=== PATIENT | female | born 1965 | race African-American/Black ===

== ENCOUNTER → 2018-04-29 | Outpatient (CLI) | payer OTHER ==
--- NOTE | 2018-05-16 12:39 | MM ---
Reason for exam: screening (asymptomatic). History: Patient is postmenopausal. Physical Findings: A clinical breast exam by your physician is recommended on an annual basis and results should be correlated with mammographic findings. MG Screening Mammo w CAD Bilateral CC and MLO view(s) were taken. No prior studies available for comparison. The breast tissue is heterogeneously dense. This may lower the sensitivity of mammography. No suspicious abnormality. ASSESSMENT: Negative, BI-RAD 1 RECOMMENDATION: Routine screening mammogram of both breasts in 1 year.
== END | disposition home or self-care (01) ==
LOC: RADMAMWWP 08:48 → EEVIPCON 08:48
DX: Z12.31 Encounter for screening mammogram for malignant neoplasm of breast (principal)
CPT/HCPCS: 77067

== ENCOUNTER 2023-02-09 10:32 | Inpatient (IN) | payer OTHER, MEDICARE ==
[2023-02-09] MEDS ORDERED: SODIUM CHLORIDE 0.9% 1,000 ML IV ONE (10:39)
[2023-02-09] MEDS ORDERED: ACETAMINOPHEN IV (For NPO) 1,000 MG in EMPTY BAG 1 BAG IVPB STA (10:44)
--- NOTE | 2023-02-09 11:05 | ED ---
Altered Mental Status HPI - General Chief Complaint: Altered Mental Status Stated Complaint: tachycardia Time Seen by Provider: 02/09/23 10:35 Source: EMS Mode of arrival: EMS Limitations: altered mental status - History of Present Illness Initial Comments: 57-year-old female with past medical history of schizoaffective disorder, Tinoco's palsy who presents to the emergency department from the [place]. Her caretakers at bedside and provides the history. States the patient was seen on Sunday at the [facility] in [place]. She was having some flank pain. They did perform laboratory studies and a CT of her abdomen and pelvis which did not demonstrate a kidney stone but did find pneumonia. They recommended that the patient be hospitalized however she refused. She was not sent home on any medications. Patient has gone progressively confused since yesterday. They state that they noted that she began having left-sided ear drainage. Today the patient was taken into the clinic where she was diagnosed with an ear infection. Due to elevated heart rate with concern for sepsis, they did transport the patient to the hospital. Patient cannot provide much history. Denies any chest pain or shortness of breath. No lateralizing weakness. No other alleviating, precipitating or modifying factors - Related Data Home Medications Medication Instructions Recorded Confirmed Acetaminophen Tab [Tylenol] 650 mg PO Q6HR PRN 02/09/23 02/09/23 Benzoyl Peroxide 2.5% Gel 1 applic TOPICAL DAILY PRN 02/09/23 02/09/23 Benztropine Mesylate [Cogentin] 1 mg PO DAILY 02/09/23 02/09/23 Carboxymethylcellulose Sodium 1 drop BOTH EYES QID PRN 02/09/23 02/09/23 [Refresh Tears] Cholecalciferol [Vitamin D3 (10 10 mcg PO DAILY 02/09/23 02/09/23 Mcg = 400 Iu)] Diclofenac Sodium Gel [Voltaren 1 applic TOPICAL BID PRN 02/09/23 02/09/23 Gel] Docusate [Colace] 100 mg PO BID PRN 02/09/23 02/09/23 Famotidine [Pepcid] 20 mg PO DAILY 02/09/23 02/09/23 Gabapentin [Neurontin] 100 mg PO BID 02/09/23 02/09/23 Hypromellose 0.5% Eye Drops 1 drop BOTH EYES DAILY PRN 02/09/23 02/09/23 LORazepam [Ativan] 1 mg PO BID PRN 02/09/23 02/09/23 Loratadine 10 mg PO DAILY 02/09/23 02/09/23 Multivitamins, Thera [Multivitamin 1 tab PO DAILY 02/09/23 02/09/23 (formulary)] OLANZapine 15 mg PO HS 02/09/23 02/09/23 Omeprazole 20 mg PO DAILY 02/09/23 02/09/23 Oxybutynin Chloride [oxyBUTYnin 10 mg PO DAILY 02/09/23 02/09/23 chloride ER] Paliperidone [Invega] 6 mg PO DAILY 02/09/23 02/09/23 Pyrithione Zinc 2% Shampoo 1 applic TOPICAL DAILY PRN 02/09/23 02/09/23 Refresh Pm Eye Lubrication 1 applic BOTH EYES HS 02/09/23 02/09/23 Tretinoin/Emollient Base 1 applic TOPICAL HS 02/09/23 02/09/23 [Tretinoin 0.05% Emollient Crm] Triamcinolone 0.1% Ointment 1 applic TOPICAL BID PRN 02/09/23 02/09/23 [Kenalog 0.1% Ointment] Valproic Acid [Depakene] 500 mg PO TID@0800,1400,2000 02/09/23 02/09/23 cycloSPORINE 0.05% OPHTH SOLN 1 applicator BOTH EYES Q12H 02/09/23 02/09/23 [Restasis] polyethylene glycoL 3350 [Miralax] 17 gm PO BID PRN 02/09/23 02/09/23 Previous Rx's Medication Instructions Recorded Levofloxacin [Levaquin] 750 mg PO DAILY 6 Days #6 tab 02/13/23 Ofloxacin 0.3% Ophth Soln [Ocuflox 10 drops LEFT EAR BID #21 ml 02/13/23 Ophth Soln] Allergies Allergy/AdvReac Type Severity Reaction Status Date / Time No Known Allergies Allergy Verified 02/09/23 13:18 Review of Systems ROS Statement: Those systems with pertinent positive or pertinent negative responses have been documented in the HPI. ROS Other: All systems not noted in ROS Statement are negative. Past Medical History Past Medical History: Unable to Obtain Past Surgical History: Unable to Obtain General Exam Limitations: altered mental status General appearance: lethargic Head exam: Present: atraumatic, normocephalic, normal inspection Eye exam: Present: normal appearance, PERRL, EOMI. Absent: scleral icterus, conjunctival injection, periorbital swelling ENT exam: Present: mucous membranes dry, other (purulent drainge left ear. cannot visualize tm) Respiratory exam: Present: rales Cardiovascular Exam: Present: normal rhythm, tachycardia GI/Abdominal exam: Present: soft, normal bowel sounds. Absent: distended, tenderness, guarding, rebound, rigid Neurological exam: Present: altered Psychiatric exam: Present: flat affect Skin exam: Present: warm, dry, intact, normal color. Absent: rash Course Vital Signs 02/09/23 02/09/23 02/09/23 10:34 12:12 13:13 Temperature 99.1 F Pulse Rate 118 H 112 H 105 H Respiratory 20 20 20 Rate Blood Pressure 129/84 104/62 122/72 O2 Sat by Pulse 94 L 96 96 Oximetry 02/09/23 02/09/23 02/09/23 14:31 15:00 16:00 Temperature Pulse Rate 112 H 106 H 121 H Respiratory 20 20 20 Rate Blood Pressure 109/68 104/62 114/88 O2 Sat by Pulse 96 98 96 Oximetry 02/09/23 02/09/23 02/09/23 17:00 18:55 19:20 Temperature 101.7 F H 100 F H Pulse Rate 106 H Respiratory 20 22 Rate Blood Pressure 117/87 114/67 O2 Sat by Pulse 96 98 Oximetry 02/09/23 02/09/23 02/10/23 20:28 22:05 01:19 Temperature 101.1 F H 99.5 F Pulse Rate 118 H 120 H 110 H Respiratory 20 20 20 Rate Blood Pressure 103/64 100/74 103/66 O2 Sat by Pulse 95 96 96 Oximetry 02/10/23 02/10/23 02/10/23 02:40 04:29 05:27 Temperature 100.5 F H Pulse Rate 112 H 121 H 130 H Respiratory 19 18 21 Rate Blood Pressure 102/52 120/55 115/56 O2 Sat by Pulse 98 97 97 Oximetry 02/10/23 02/10/23 02/10/23 06:12 07:24 08:15 Temperature 97.5 F L Pulse Rate 124 H 114 H Respiratory 16 Rate Blood Pressure 96/61 O2 Sat by Pulse Oximetry 02/10/23 02/10/23 02/10/23 11:40 15:04 15:49 Temperature 99.1 F 100.4 F H 100 F H Pulse Rate 117 H 131 H 110 H Respiratory 18 18 18 Rate Blood Pressure 120/87 107/68 107/68 O2 Sat by Pulse 98 94 L 97 Oximetry 02/10/23 16:50 Temperature 100 F H Pulse Rate 112 H Respiratory 18 Rate Blood Pressure 115/71 O2 Sat by Pulse 96 Oximetry Medical Decision Making - Medical Decision Making Was pt. sent in by a medical professional or institution (, PA, PHYSICS DEPARTMENT CHAIR, urgent care, hospital, or senior care...) When possible be specific @ -No Did you speak to anyone other than the patient for history (EMS, parent, family, police, friend...)? What history was obtained from this source @ -it infrastructure architect from [facility], ems both provide history Did you review nursing and triage notes (agree or disagree)? Why? @ -I reviewed and agree with nursing and triage notes Were old charts reviewed (outside hosp., previous admission, EMS record, old EKG, old radiological studies, urgent care reports/EKG's, senior care records)? Report findings @ -No old charts were reviewed Differential Diagnosis (chest pain, altered mental status, abdominal pain women, abdominal pain men, vaginal bleeding, weakness, fever, dyspnea, syncope, headache, dizziness, GI bleed, back pain, seizure, CVA, palpatations, mental health, musculoskeletal)? @ -pna, uti, sepsis, sah, sdh, cva, cellulitis EKG interpreted by me (3pts min.). @ -Yes and demonstrates sinus tachycardia with a rate of 120. [place] interval 124. QRS 77. QTC 410. Inverted T-wave lead 3, V3-V4. Mild associated ST depression. No acute ST segment elevation X-rays interpreted by me (1pt min.). @ -yes, demonstrates pna CT interpreted by me (1pt min.). @ -yes, no pe U/S interpreted by me (1pt. min.). @ -None done What testing was considered but not performed or refused? (CT, X-rays, U/S, labs)? Why? @ -None What meds were considered but not given or refused? Why? @ -None Did you discuss the management of the patient with other professionals (professionals i.e. , PA, PHYSICS DEPARTMENT CHAIR, lab, RT, psych nurse, psychologist social, electroplating worker, teacher, small business banking officer, human services case manager)? Give summary @ -yes, dr reyes Was smoking cessation discussed for >3mins.? @ -No Was critical care preformed (if so, how long)? @ -No Were there social determinants of health that impacted care today? How? (Homelessness, low income, unemployed, alcoholism, drug addiction, transportation, low edu. Level, literacy, decrease access to med. care, snf, rehab)? @ -schizoaffective disorder - history difficult to obtain from pt directly Was there de-escalation of care discussed even if they declined (Discuss DNR or withdrawal of care, Hospice)? DNR status @ -No What co-morbidities impacted this encounter? (DM, HTN, Smoking, COPD, CAD, Cancer, CVA, ARF, Chemo, Hep., AIDS, mental health diagnosis, sleep apnea, morbid obesity)? @ -None Was patient admitted / discharged? Hospital course, mention meds given and route, prescriptions, significant lab abnormalities, going to OR and other pe rtinent info. @ -Upon arrival patient was placed into room 5. A thorough history and physical exam was performed. Patient does have profound left-sided otitis externa. Wick is placed in a ofloxacin drops or ordered. Laboratory studies are conducted and reviewed. White blood cell count 14.3. Potassium 3.2. This is replaced. UA demonstrates rare bacteria. Urine is positive for benzos for which the patient does take Ativan twice daily as needed. Chest x-ray is followed by chest CT which demonstrates no PE but continued pneumonia. Antibiotics are administered. Recommended admission for pneumonia with sepsis as well as otitis externa. Elephant Keeper was agreeable. Patient admitted to the floor to Dr. Reyes. Undiagnosed new problem with uncertain prognosis? @ -yes Drug Therapy requiring intensive monitoring for toxicity (Heparin, Nitro, Insulin, Cardizem)? @ -No Were any procedures done? @ -No Diagnosis/symptom? @ -acute encephalopathy, acute pna, acute left otitis externa, sepsis, leukocytosis, tachycardia, hypokalemia Acute, or Chronic, or Acute on Chronic? @ -ACUTE Uncomplicated (without systemic symptoms) or Complicated (systemic symptoms)? @ -complicated Side effects of treatment? @ -No Exacerbation, Progression, or Severe Exacerbation? @ -No Poses a threat to life or bodily function? How? (Chest pain, [place], [place], pneumonia, PE, COPD, DKA, ARF, appy, cholecystitis, CVA, Diverticulitis, Homicidal, Suicidal, threat to staff... and all critical care pts) @ -yes, patient meets sepsis criteria from pna - Lab Data Result diagrams: 02/11/23 06:37 02/11/23 06:37 Lab Results 02/09/23 02/09/23 02/09/23 Range/Units 11:03 11:03 11:03 WBC 14.3 H (3.8-10.6) k/uL RBC 3.34 L (3.80-5.40) m/uL Hgb 10.7 L (11.4-16.0) gm/dL Hct 32.4 L (34.0-46.0) % MCV 97.2 (80.0-100.0) fL MCH 32.1 (25.0-35.0) pg MCHC 33.0 (31.0-37.0) g/dL RDW 12.0 (11.5-15.5) % Plt Count 183 (150-450) k/uL MPV 8.0 Neutrophils % 81 % Lymphocytes % 7 % Monocytes % 10 % Eosinophils % 0 % Basophils % 0 % Neutrophils # 11.6 H (1.3-7.7) k/uL Lymphocytes # 1.0 (1.0-4.8) k/uL Monocytes # 1.4 H (0-1.0) k/uL Eosinophils # 0.0 (0-0.7) k/uL Basophils # 0.0 (0-0.2) k/uL PT 10.8 (9.0-12.0) sec INR 1.0 (<1.2) APTT 26.0 (22.0-30.0) sec Sodium (137-145) mmol/L Potassium (3.5-5.1) mmol/L Chloride (98-107) mmol/L Carbon Dioxide (22-30) mmol/L Anion Gap mmol/L BUN (7-17) mg/dL Creatinine (0.52-1.04) mg/dL Est GFR (CKD-EPI)AfAm (>60 ml/min/1.73 sqM) Est GFR (CKD-EPI)NonAf (>60 ml/min/1.73 sqM) Glucose (74-99) mg/dL Calcium (8.4-10.2) mg/dL Total Bilirubin (0.2-1.3) mg/dL AST (14-36) U/L ALT (4-34) U/L Alkaline Phosphatase (38-126) U/L Ammonia (<30) umol/L Troponin I (0.000-0.034) ng/mL Total Protein (6.3-8.2) g/dL Albumin (3.5-5.0) g/dL TSH (0.465-4.680) mIU/L Urine Color Yellow Urine Appearance Clear (Clear) Urine pH 5.5 (5.0-8.0) Ur Specific [place] 1.020 (1.001-1.035) Urine Protein 1+ H (Negative) Urine Glucose (UA) Negative (Negative) Urine Ketones 1+ H (Negative) Urine Blood Large H (Negative) Urine Nitrite Negative (Negative) Urine Bilirubin Negative (Negative) Urine Urobilinogen 2.0 (<2.0) mg/dL Ur Leukocyte Esterase Negative (Negative) Urine RBC 5 (0-5) /hpf Urine WBC 3 (0-5) /hpf Ur Squamous Epith Cells <1 (0-4) /hpf Urine Bacteria Rare H (None) /hpf Urine Mucus Few H (None) /hpf Urine Opiates Screen Not Detected (NotDetected) Ur Oxycodone Screen Not Detected (NotDetected) Urine Methadone Screen Not Detected (NotDetected) Ur Propoxyphene Screen Not Detected (NotDetected) Ur Barbiturates Screen Not Detected (NotDetected) U Tricyclic Antidepress Not Detected (NotDetected) Ur Phencyclidine Scrn Not Detected (NotDetected) Ur Amphetamines Screen Not Detected (NotDetected) U Methamphetamines Scrn Not Detected (NotDetected) U Benzodiazepines Scrn Detected H (NotDetected) Urine Cocaine Screen Not Detected (NotDetected) U Marijuana (THC) Screen Not Detected (NotDetected) Serum Alcohol mg/dL Urine Legionella Ag (Negative) 02/09/23 02/09/23 02/09/23 Range/Units 11:03 11:03 11:03 WBC (3.8-10.6) k/uL RBC (3.80-5.40) m/uL Hgb (11.4-16.0) gm/dL Hct (34.0-46.0) % MCV (80.0-100.0) fL MCH (25.0-35.0) pg MCHC (31.0-37.0) g/dL RDW (11.5-15.5) % Plt Count (150-450) k/uL MPV Neutrophils % % Lymphocytes % % Monocytes % % Eosinophils % % Basophils % % Neutrophils # (1.3-7.7) k/uL Lymphocytes # (1.0-4.8) k/uL Monocytes # (0-1.0) k/uL Eosinophils # (0-0.7) k/uL Basophils # (0-0.2) k/uL PT (9.0-12.0) sec INR (<1.2) APTT (22.0-30.0) sec Sodium 136 L (137-145) mmol/L Potassium 3.2 L (3.5-5.1) mmol/L Chloride 103 (98-107) mmol/L Carbon Dioxide 24 (22-30) mmol/L Anion Gap 9 mmol/L BUN 15 (7-17) mg/dL Creatinine 0.83 (0.52-1.04) mg/dL Est GFR (CKD-EPI)AfAm >90 (>60 ml/min/1.73 sqM) Est GFR (CKD-EPI)NonAf 80 (>60 ml/min/1.73 sqM) Glucose 97 (74-99) mg/dL Calcium 8.6 (8.4-10.2) mg/dL Total Bilirubin 0.6 (0.2-1.3) mg/dL AST 284 H (14-36) U/L ALT 40 H (4-34) U/L Alkaline Phosphatase 56 (38-126) U/L Ammonia 12 (<30) umol/L Troponin I <0.012 (0.000-0.034) ng/mL Total Protein 7.3 (6.3-8.2) g/dL Albumin 3.3 L (3.5-5.0) g/dL TSH 1.860 (0.465-4.680) mIU/L Urine Color Urine Appearance (Clear) Urine pH (5.0-8.0) Ur Specific [place] (1.001-1.035) Urine Protein (Negative) Urine Glucose (UA) (Negative) Urine Ketones (Negative) Urine Blood (Negative) Urine Nitrite (Negative) Urine Bilirubin (Negative) Urine Urobilinogen (<2.0) mg/dL Ur Leukocyte Esterase (Negative) Urine RBC (0-5) /hpf Urine WBC (0-5) /hpf Ur Squamous Epith Cells (0-4) /hpf Urine Bacteria (None) /hpf Urine Mucus (None) /hpf Urine Opiates Screen (NotDetected) Ur Oxycodone Screen (NotDetected) Urine Methadone Screen (NotDetected) Ur Propoxyphene Screen (NotDetected) Ur Barbiturates Screen (NotDetected) U Tricyclic Antidepress (NotDetected) Ur Phencyclidine Scrn (NotDetected) Ur Amphetamines Screen (NotDetected) U Methamphetamines Scrn (NotDetected) U Benzodiazepines Scrn (NotDetected) Urine Cocaine Screen (NotDetected) U Marijuana (THC) Screen (NotDetected) Serum Alcohol <10 mg/dL Urine Legionella Ag (Negative) 02/09/23 Range/Units 11:03 WBC (3.8-10.6) k/uL RBC (3.80-5.40) m/uL Hgb (11.4-16.0) gm/dL Hct (34.0-46.0) % MCV (80.0-100.0) fL MCH (25.0-35.0) pg MCHC (31.0-37.0) g/dL RDW (11.5-15.5) % Plt Count (150-450) k/uL MPV Neutrophils % % Lymphocytes % % Monocytes % % Eosinophils % % Basophils % % Neutrophils # (1.3-7.7) k/uL Lymphocytes # (1.0-4.8) k/uL Monocytes # (0-1.0) k/uL Eosinophils # (0-0.7) k/uL Basophils # (0-0.2) k/uL PT (9.0-12.0) sec INR (<1.2) APTT (22.0-30.0) sec Sodium (137-145) mmol/L Potassium (3.5-5.1) mmol/L Chloride (98-107) mmol/L Carbon Dioxide (22-30) mmol/L Anion Gap mmol/L BUN (7-17) mg/dL Creatinine (0.52-1.04) mg/dL Est GFR (CKD-EPI)AfAm (>60 ml/min/1.73 sqM) Est GFR (CKD-EPI)NonAf (>60 ml/min/1.73 sqM) Glucose (74-99) mg/dL Calcium (8.4-10.2) mg/dL Total Bilirubin (0.2-1.3) mg/dL AST (14-36) U/L ALT (4-34) U/L Alkaline Phosphatase (38-126) U/L Ammonia (<30) umol/L Troponin I (0.000-0.034) ng/mL Total Protein (6.3-8.2) g/dL Albumin (3.5-5.0) g/dL TSH (0.465-4.680) mIU/L Urine Color Urine Appearance (Clear) Urine pH (5.0-8.0) Ur Specific [place] (1.001-1.035) Urine Protein (Negative) Urine Glucose (UA) (Negative) Urine Ketones (Negative) Urine Blood (Negative) Urine Nitrite (Negative) Urine Bilirubin (Negative) Urine Urobilinogen (<2.0) mg/dL Ur Leukocyte Esterase (Negative) Urine RBC (0-5) /hpf Urine WBC (0-5) /hpf Ur Squamous Epith Cells (0-4) /hpf Urine Bacteria (None) /hpf Urine Mucus (None) /hpf Urine Opiates Screen (NotDetected) Ur Oxycodone Screen (NotDetected) Urine Methadone Screen (NotDetected) Ur Propoxyphene Screen (NotDetected) Ur Barbiturates Screen (NotDetected) U Tricyclic Antidepress (NotDetected) Ur Phencyclidine Scrn (NotDetected) Ur Amphetamines Screen (NotDetected) U Methamphetamines Scrn (NotDetected) U Benzodiazepines Scrn (NotDetected) Urine Cocaine Screen (NotDetected) U Marijuana (THC) Screen (NotDetected) Serum Alcohol mg/dL Urine Legionella Ag Negative (Negative) Disposition Clinical Impression: Acute encephalopathy, Otitis externa, Pneumonia, Sepsis Disposition: ADMITTED IP TO THIS HOSP Condition: Good Is patient prescribed a controlled substance at d/c from ED?: No Time of Disposition: 14:38 Decision to Admit Reason: Admit from EC Decision Date: 02/09/23 Decision Time: 14:38
[2023-02-09 11:42] LABS: ALT 40 U/L (4-34); AST 284 U/L (14-36); African American GFR (CKD) >90 (>60 ml/min/1.73 sqM); Albumin 3.3 g/dL (3.5-5.0); Alcohol <10 mg/dL; Alkaline Phosphatase 56 U/L (38-126); Anion Gap 9 mmol/L; Blood Urea Nitrogen 15 mg/dL (7-17); Calcium 8.6 mg/dL (8.4-10.2); Carbon Dioxide 24 mmol/L (22-30); Chloride 103 mmol/L (98-107); Glucose 97 mg/dL (74-99); Non-African American GFR(CKD) 80 (>60 ml/min/1.73 sqM); Potassium 3.2 mmol/L (3.5-5.1); Sodium 136 mmol/L (137-145); Total Bilirubin 0.6 mg/dL (0.2-1.3); Total Protein 7.3 g/dL (6.3-8.2)
[2023-02-09 11:47] LABS: Prothrombin Time 10.8 sec (9.0-12.0)
[2023-02-09 11:55] LABS: Basophils % (A) 0 %; Eosinophils % (A) 0 %; HCT 32.4 % (34.0-46.0); HGB 10.7 gm/dL (11.4-16.0); Lymphocytes % (A) 7 %; MCH 32.1 pg (25.0-35.0); MCV 97.2 fL (80.0-100.0); Monocytes # (A) 1.4 k/uL (0-1.0); Monocytes % (A) 10 %; Neutrophils # (A) 11.6 k/uL (1.3-7.7); Neutrophils % (A) 81 %; Platelet Count 183 k/uL (150-450); RBC 3.34 m/uL (3.80-5.40); WBC 14.3 k/uL (3.8-10.6)
--- NOTE | 2023-02-09 12:12 | XR ---
EXAMINATION TYPE: XR chest 1V DATE OF EXAM: 02/09/2023 12:05 PM COMPARISON: none TECHNIQUE: XR chest 1V Frontal view of the chest. CLINICAL INDICATION:Female, 57 years old with history of altered mental status; FINDINGS: Lungs/Pleura: Left lung airspace opacities There is no evidence of pleural effusion, focal consolidat ion, or pneumothorax. Pulmonary vascularity: Unremarkable. Heart/mediastinum: Cardiomediastinal silhouette is unremarkable. Musculoskeletal: No acute osseous pathology. IMPRESSION: Left lower lung airspace opacities correlate for pneumonia.
--- NOTE | 2023-02-09 12:30 | CT ---
EXAMINATION TYPE: CT brain wo con CT DLP: 1188.4 mGycm, Automated exposure control for dose reduction was used. DATE OF EXAM: 02/09/2023 12:03 PM COMPARISON: None. CLINICAL INDICATION:Female, 57 years old with history of Altered mental status, Altered mental status . TECHNIQUE: Brain: Axial CT images of the brain were obtained with coronal and sagittal reformats created and rev iewed. Contrast used: None. Oral contrast used: None. FINDINGS: Brain: Extra-axial spaces: No abnormal extra-axial fluid collections. Ventricular system: Within normal limits Cerebral parenchyma: No acute intraparenchymal hemorrhage or mass effect. The monson-white junction is well differentiated. Cerebellum: Unremarkable. Mass effect: No evidence of midline shift. Intracranial vasculature: unremarkable Soft tissues: Normal. Calvarium/osseous structures: No depressed skull fracture. Paranasal sinuses and mastoid air cells: Mild scattered paranasal sinus disease. Visualized orbits: Orbital contents are intact. IMPRESSION: No acute intracranial process.
[2023-02-09] MEDS ORDERED: cefTRIAXone IN SWFI 1,000 MG/10 ML SYRINGE IVP STA (12:37)
[2023-02-09] MEDS ORDERED: AZITHROMYCIN 500 MG in SODIUM CHLORIDE 0.9% 250 ML IVPB STA (12:38)
[2023-02-09 13:13] LABS: Appearance,Urine Clear (Clear); Bacteria,Urine Rare /hpf; Bilirubin,Urine Negative (Negative); Blood,Urine Large (Negative); Color,Urine Yellow; Glucose,Urine (UA) Negative (Negative); Ketones,Urine 1+ (Negative); Leukocyte Esterase,Urine Negative (Negative); Mucus,Urine Few /hpf; Nitrite,Urine Negative (Negative); PH, Urine 5.5 (5.0-8.0); Protein,Urine 1+ (Negative); RBC,Urine 5 /hpf (0-5); Squamous Epithelial Cell,Urine <1 /hpf (0-4); WBC,Urine 3 /hpf (0-5)
--- NOTE | 2023-02-09 13:14 | CT ---
CT CHEST FOR PULMONARY EMBOLISM. EXAMINATION TYPE: CT chest angio for PE DATE OF EXAM: 02/09/2023 INDICATION: r/o PE CT DLP: 386.2 mGycm, Automated exposure control for dose reduction was used. CONTRAST: Patient injected with 80 mL of Isovue 370. COMPARISON: None TECHNIQUE: CT of the chest is performed on a spiral scan at 2 mm thick sections. Study is performed with intravenous contrast timed for evaluation for pulmonary embolism. This will limit additional po rtions of the evaluation. 3-D MIP images reconstructed by the technologist are reviewed on the compu ter in the coronal and sagittal planes. FINDINGS: No persistent filling defects are evident to suggest an acute pulmonary embolism. There is an enlarged superior mediastinal lymph node adjacent to the aortic arch measuring 1.2 cm. Manzanares bcarinal lymph node measures 1.3 cm. There is some increased soft tissue density in the left hilar re gion. The ascending aorta diameter at the level of the main pulmonary artery is 3.2 cm. The main pu lmonary artery diameter at the bifurcation is 3.3 cm. There is consolidation with pneumatoceles or cavitation within the midportion of the left hilar regio n. This extends from the hilum to the periphery of the lung and measures in greatest dimension 7.6 x 5.5 cm. Pneumonia and neoplasm should be considered. There is elevation of the left diaphragm. Some m inimal compressive atelectasis may be within the right lung. Limited CT section through the upper abdomen are unremarkable. IMPRESSIONS: 1. No acute pulmonary embolism. 2. Consolidation left hilar region extending to the peripheral lung. Correlate for pneumonia or neopl asm. 3. Enlarged mediastinal adenopathy discussed above.
[2023-02-09 13:22] LABS: Amphetamine Screen,Urine Not Detected (NotDetected); Barbiturate Screen,Urine Not Detected (NotDetected); Benzodiazepines Screen,Urine Detected (NotDetected); Cocaine Screen,Urine Not Detected (NotDetected); Methadone Screen, Urine Not Detected (NotDetected); Opiate Screen,Urine Not Detected (NotDetected); Oxycodone Screen, Urine Not Detected (NotDetected); Phencyclidine Screen,Urine Not Detected (NotDetected); Tricyclic Antidepressant,Urine Not Detected (NotDetected); Urn Cannabinoid Scrn Not Detected (NotDetected)
[2023-02-09] MEDS ORDERED: POTASSIUM CHLORIDE ER 20 MEQ TAB.ER PO STA (13:41)
[2023-02-09] MEDS ORDERED: IPRATROPIUM-ALBUTEROL 3 ML NEB INHALATION PRN (14:38)
[2023-02-09] MEDS ORDERED: PNEUMONIA PROTOCOL UTILIZED 1 EACH MISC PO PRN (14:38)
[2023-02-09] MEDS: SODIUM CHLORIDE 0.9% 1,000 ML IV SCH ×2 (15:03→22:18)
[2023-02-09] MEDS: OFLOXACIN 0.3% OPHTH DROPS 5 ML BOTTLE LEFT EAR SCH ×2 (15:18→22:10)
[2023-02-09] MEDS ORDERED: LORazepam 1 MG TAB PO PRN (18:09)
--- NOTE | 2023-02-09 18:15 | P.HPIM ---
History of Present Illness H&P Date: 02/09/23 Patient is alert and oriented 1 and majority of information is obtained from ER documentation and chart review. Patient is a 57-year-old female with PMH of schizoaffective disorder, Tinoco's palsy presents ED after being brought in from the [place] clinic. Apparently, patient was seen at the [facility] in [place] on Sunday. Workup at that time revealed pneumonia however patient signed out AGAINST MEDICAL ADVICE. Since then, patient has been progressively getting confused and has now noticed left-sided ear drainage. She went to the [place] clinic today where she was urged to go to the hospital due to concerns for sepsis and overwhelming infection. Patient currently reports a dry cough and fatigue. She denies any headache, lower extremity edema, nausea or vomiting, chest pain, shortness of breath, fever or chills, palpitations, changes in urination or bowel habits. No changes in appetite or weight. She denies any dizziness, numbness/weakness/tingling of extremities. In the ED, she was noted to be tachycardic with heart rate in the 100s and T-max of 101.7. Vital signs were otherwise stable. CBC showed leukocytosis of 14.3 and hemoglobin of 10.7 with neutrophilia. Coagulation panel within normal limits. CMP showed sodium of 136, potassium of 3.2, AST of 284, ALT of 40. TSH within normal limits. Ammonia within normal limits. Troponin less than 0.012. Urinalysis showed large blood, negative for leukocyte esterase or nitrite. UDS positive for benzodiazepine. Serum alcohol negative. EKG showed sinus tachycardia with T wave inversion in V3 and V4. Brain CT was negative. Chest x-ray negative. CTA chest showing consolidation of the left hilar region and mediastinal adenopathy. Pertinent positives and negatives as discussed in HPI, a complete review of systems was performed and all other systems are negative. General: non toxic, no distress, appears at stated age Derm: warm, dry, left ear swollen external canal, unable to view TM Head: atraumatic, normocephalic, symmetric Eyes: EOMI, no lid lag, anicteric sclera Mouth: no lip lesion, mucus membranes moist Cardiovascular: Tachycardic, no murmur Lungs: CTA bilateral, no rhonchi, no rales , no accessory muscle use Abdominal: soft, nontender to palpation, no guarding, no appreciable organomegaly Ext: no gross muscle atrophy, no edema, no contractures Neuro: CN II-XI grossly intact except L sided facial droop, no focal neuro deficits Psych: Alert, oriented x 1-2 Sepsis related to community-acquired pneumonia Acute metabolic encephalopathy related to above Otitis external Normocytic anemia Hypokalemia Transaminitis Chronic conditions: Schizoaffective disorder, Tinoco's palsy Based on my assessment of this patient, this patient meets a high complexity level of care. Patient has a history of with severe exacerbation or progression of disease which poses a threat to life or bodily function. Patient has an acute diagnosis of sepsis related to community-acquired pneumonia and otitis external that poses a threat to life or bodily function. She meets sepsis criteria with leukocytosis, tachycardia and positive source of infection. Start Rocephin 2 g IV daily, azithromycin 500 mg by mouth daily for treatment of pneumonia. Start ofloxacin 0.3% ear drops for treatment of otitis externa. Start normal saline at 130 mL per hour. Telemetry monitoring. Sputum culture, blood culture, lactic acid and Legionella antigen ordered. Potassium replaced with potassium chloride 40 mEq by mouth. Lovenox SQ for DVT prophylaxis. Full code. I have reviewed the following merchandising consultant notes: I have reviewed the results of the following tests: CBC, coagulation panel, CMP, TSH, ammonia, troponin, urinalysis, UDS, serum alcohol, CT brain, chest x-ray, CT chest. I have ordered the following tests: Lactic acid, blood culture, sputum culture, Legionella antigen. I have discussed the care of this patient with the following independent historian: I have independently interpreted the following test below: EKG interpreted as above. I have discussed the management of this patient with the following physician: Past Medical History Past Medical History: Unable to Obtain Additional Past Medical History / Comment(s): chronic back pain, iron deficiency anemia Past Surgical History: Unable to Obtain Past Psychological History: Bipolar, Schizophrenia Past Alcohol Use History: Abuse Past Drug Use History: Cocaine Medications and Allergies Home Medications Medication Instructions Recorded Confirmed Type Acetaminophen Tab [Tylenol] 650 mg PO Q6HR PRN 02/09/23 02/09/23 History Benzoyl Peroxide 2.5% Gel 1 applic TOPICAL DAILY PRN 02/09/23 02/09/23 History Benztropine Mesylate [Cogentin] 1 mg PO DAILY 02/09/23 02/09/23 History Carboxymethylcellulose Sodium 1 drop BOTH EYES QID PRN 02/09/23 02/09/23 History [Refresh Tears] Celecoxib [CeleBREX] 100 mg PO BID 02/09/23 02/09/23 History Cholecalciferol [Vitamin D3 (10 10 mcg PO DAILY 02/09/23 02/09/23 History Mcg = 400 Iu)] Diclofenac Sodium Gel [Voltaren 1 applic TOPICAL BID PRN 02/09/23 02/09/23 History Gel] Docusate [Colace] 100 mg PO BID PRN 02/09/23 02/09/23 History Famotidine [Pepcid] 20 mg PO DAILY 02/09/23 02/09/23 History Gabapentin [Neurontin] 100 mg PO BID 02/09/23 02/09/23 History Hypromellose 0.5% Eye Drops 1 drop BOTH EYES DAILY PRN 02/09/23 02/09/23 History LORazepam [Ativan] 1 mg PO BID PRN 02/09/23 02/09/23 History Loratadine 10 mg PO DAILY 02/09/23 02/09/23 History Multivitamins, Thera [Multivitamin 1 tab PO DAILY 02/09/23 02/09/23 History (formulary)] OLANZapine 15 mg PO HS 02/09/23 02/09/23 History Omeprazole 20 mg PO DAILY 02/09/23 02/09/23 History Oxybutynin Chloride [oxyBUTYnin 10 mg PO DAILY 02/09/23 02/09/23 History chloride ER] Paliperidone [Invega] 6 mg PO DAILY 02/09/23 02/09/23 History Pyrithione Zinc 2% Shampoo 1 applic TOPICAL DAILY PRN 02/09/23 02/09/23 History Refresh Pm Eye Lubrication 1 applic BOTH EYES HS 02/09/23 02/09/23 History Tretinoin/Emollient Base 1 applic TOPICAL HS 02/09/23 02/09/23 History [Tretinoin 0.05% Emollient Crm] Triamcinolone 0.1% Ointment 1 applic TOPICAL BID PRN 02/09/23 02/09/23 History [Kenalog 0.1% Ointment] Valproic Acid [Depakene] 500 mg PO TID@0800,1400,2000 02/09/23 02/09/23 History cycloSPORINE 0.05% OPHTH SOLN 1 applicator BOTH EYES Q12H 02/09/23 02/09/23 History [Restasis] polyethylene glycoL 3350 [Miralax] 17 gm PO BID PRN 02/09/23 02/09/23 History Allergies Allergy/AdvReac Type Severity Reaction Status Date / Time No Known Allergies Allergy Verified 02/09/23 13:18 Physical Exam Vitals: Vital Signs Temp Pulse Resp BP Pulse Ox 02/09/23 17:00 101.7 F H 106 H 20 117/87 96 02/09/23 16:00 121 H 20 114/88 96 02/09/23 15:00 106 H 20 104/62 98 02/09/23 14:31 112 H 20 109/68 96 02/09/23 13:13 105 H 20 122/72 96 02/09/23 12:12 112 H 20 104/62 96 02/09/23 10:34 99.1 F 118 H 20 129/84 94 L Intake and Output 02/09/23 02/09/23 02/09/23 06:59 14:59 22:59 Other: Weight 70 kg Results CBC & Chem 7: 02/09/23 11:03 02/09/23 11:03 Labs: Abnormal Lab Results - Last 24 Hours (Table) 02/09/23 02/09/23 02/09/23 Range/Units 11:03 11:03 11:03 WBC 14.3 H (3.8-10.6) k/uL RBC 3.34 L (3.80-5.40) m/uL Hgb 10.7 L (11.4-16.0) gm/dL Hct 32.4 L (34.0-46.0) % Neutrophils # 11.6 H (1.3-7.7) k/uL Monocytes # 1.4 H (0-1.0) k/uL Sodium 136 L (137-145) mmol/L Potassium 3.2 L (3.5-5.1) mmol/L AST 284 H (14-36) U/L ALT 40 H (4-34) U/L Albumin 3.3 L (3.5-5.0) g/dL Urine Protein 1+ H (Negative) Urine Ketones 1+ H (Negative) Urine Blood Large H (Negative) Urine Bacteria Rare H (None) /hpf Urine Mucus Few H (None) /hpf U Benzodiazepines Scrn Detected H (NotDetected)
[2023-02-09] MEDS: ACETAMINOPHEN TAB 325 MG TAB PO PRN ×2 (18:33→22:10)
[2023-02-09] MEDS: VALPROIC ACID ORAL SOLN 250 MG/5 ML CUP PO SCH (19:37)
[2023-02-09] MEDS: OLANZapine 7.5 MG TAB PO SCH (20:25)
[2023-02-09] MEDS: GABAPENTIN 100 MG CAP PO SCH (20:25)
[2023-02-09] MEDS: cycloSPORINE 0.05% OPHTH 0.4 ML DROPERETTE BOTH EYES SCH (20:28)
[2023-02-10] MEDS: ACETAMINOPHEN TAB 325 MG TAB PO PRN ×3 (05:25→21:25)
[2023-02-10] MEDS: SODIUM CHLORIDE 0.9% 1,000 ML IV SCH ×3 (05:27→21:05)
--- NOTE | 2023-02-10 07:12 | XR ---
EXAMINATION TYPE: XR chest 1V portable DATE OF EXAM: 02/10/2023 5:27 AM COMPARISON: Chest radiographs from 02/09/2023, CTA chest 02/09/2023 TECHNIQUE: XR chest 1V portable Portable AP radiograph of the chest. CLINICAL INDICATION:Female, 57 years old with history of pneumonia; FINDINGS: Lungs/Pleura: Right lung is clear. Increased consolidative appearance of the left mid and lower lung. No pneumothorax. Pulmonary vascularity: Unremarkable. Heart/mediastinum: Cardiomediastinal silhouette is unremarkable. Musculoskeletal: No acute osseous pathology. IMPRESSION: Increased consolidative appearance of the left mid and lower lung concerning for worsening pneumonia.
[2023-02-10] MEDS: ENOXAPARIN 40 MG/0.4 ML SYRINGE SQ SCH (08:51)
[2023-02-10] MEDS: VALPROIC ACID ORAL SOLN 250 MG/5 ML CUP PO SCH ×3 (08:52→21:02)
[2023-02-10] MEDS: GABAPENTIN 100 MG CAP PO SCH ×2 (08:53→21:02)
[2023-02-10] MEDS: OXYBUTYNIN 10 MG TAB.ER.24 PO SCH (08:53)
[2023-02-10] MEDS: LORATADINE 10 MG TAB PO SCH (08:53)
[2023-02-10] MEDS: AZITHROMYCIN 500 MG TAB PO SCH (08:53)
[2023-02-10] MEDS: FAMOTIDINE 20 MG TAB PO SCH (08:53)
[2023-02-10] MEDS: PANTOPRAZOLE 40 MG TABLET PO SCH (08:53)
[2023-02-10] MEDS: cycloSPORINE 0.05% OPHTH 0.4 ML DROPERETTE BOTH EYES SCH ×2 (08:54→21:05)
[2023-02-10] MEDS: PALIPERIDONE 6 MG TAB.ER.24 PO SCH (08:54)
[2023-02-10] MEDS: BENZTROPINE MESYLATE 1 MG TAB PO SCH (08:54)
[2023-02-10] MEDS: OFLOXACIN 0.3% OPHTH DROPS 5 ML BOTTLE LEFT EAR SCH ×2 (08:56→21:04)
--- NOTE | 2023-02-10 12:44 | P.PN ---
Subjective Progress Note Date: 02/10/23 Patient is a 57-year-old female with PMH of schizoaffective disorder, Tinoco's palsy presents ED after being brought in from the [place] clinic. Apparently, patient was seen at the [facility] in [place] on Sunday. Workup at that time revealed pneumonia however patient signed out AGAINST MEDICAL ADVICE. Si nce then, patient has been progressively getting confused and has now noticed left-sided ear drainage. She went to the [place] clinic today where she was urged to go to the hospital due to concerns for sepsis and overwhelming infection. In the ED, she was noted to be tachycardic with heart rate in the 100s and T-max of 101.7. Vital signs were otherwise stable. CBC showed leukocytosis of 14.3 and hemoglobin of 10.7 with neutrophilia. Coagulation panel within normal limits. CMP showed sodium of 136, potassium of 3.2, AST of 284, ALT of 40. TSH within normal limits. Ammonia within normal limits. Troponin less than 0.012. Urinalysis showed large blood, negative for leukocyte esterase or nitrite. UDS positive for benzodiazepine. Serum alcohol negative. EKG showed sinus tachycardia with T wave inversion in V3 and V4. Brain CT was negative. Chest x-ray negative. CTA chest showing consolidation of the left hilar region and mediastinal adenopathy. 02/10 Patient was seen and examined. Appears lethargic today. She has no specific complaints. Lactic acid is 1.6. CBC and BMP pending. She continues to be tachycardic with heart rate in the 110s. T-max 101.7 over the past 24 hours. Chest x-ray shows left-sided infiltrate, stable from admission. General: non toxic, no distress, appears at stated age Derm: warm, dry, left ear swollen external canal, unable to view TM Head: atraumatic, normocephalic, symmetric Eyes: EOMI, no lid lag, anicteric sclera Cardiovascular: Tachycardic, no murmur Lungs: CTA bilateral, no rhonchi, no rales , no accessory muscle use Abdominal: soft, nontender to palpation, no guarding, no appreciable organomegaly Ext: no gross muscle atrophy, no edema, no contractures Neuro: L sided facial droop, no focal neuro deficits Psych: Alert, oriented x 1-2 Sepsis related to community-acquired pneumonia Acute metabolic encephalopathy related to above Otitis external Normocytic anemia Hypokalemia Transaminitis Chronic conditions: Schizoaffective disorder, Tinoco's palsy Based on my assessment of this patient, this patient meets a high complexity level of care. Patient has a history of with severe exacerbation or progression of disease which poses a threat to life or bodily function. Patient has an acute diagnosis of sepsis related to community-acquired pneumonia and otitis external that poses a threat to life or bodily function. She meets sepsis criteria with leukocytosis, tachycardia and positive source of infection. Continue Rocephin 2 g IV daily, azithromycin 500 mg by mouth daily for treatment of pneumonia. Continue ofloxacin 0.3% ear drops for treatment of otitis externa. Continue normal saline at 130 mL per hour. Telemetry monit oring. Sputum culture, blood culture, and Legionella antigen pending. Pulmonology consulted for further management. Lovenox SQ for DVT prophylaxis. Full code. I have reviewed the following multi site leasing consultant notes: I have reviewed the results of the following tests: Lactic acid. I have ordered the following tests: CBC and BMP ordered. I have discussed the care of this patient with the following independent historian: I have independently interpreted the following test below: CXR as above. I have discussed the management of this patient with the following physician: Objective - Vital Signs Vital signs: Vital Signs Temp 99.1 F 02/10/23 11:40 Pulse 117 H 02/10/23 11:40 Resp 18 02/10/23 11:40 BP 120/87 02/10/23 11:40 Pulse Ox 98 02/10/23 11:40 FiO2 Intake & Output 02/09/23 02/10/23 02/10/23 18:59 06:59 18:59 Weight 70 kg - Labs CBC & Chem 7: 02/09/23 11:03 02/09/23 11:03 Labs: Abnormal Lab Results - Last 24 Hours (Table) 02/09/23 02/09/23 Range/Units 11:03 18:29 Plasma Lactic Acid Seven 2.6 H* (0.7-2.0) mmol/L Urine Protein 1+ H (Negative) Urine Ketones 1+ H (Negative) Urine Blood Large H (Negative) Urine Bacteria Rare H (None) /hpf Urine Mucus Few H (None) /hpf U Benzodiazepines Scrn Detected H (NotDetected)
[2023-02-10 13:25] LABS: HGB 11.5 gm/dL (11.4-16.0); MCH 32.5 pg (25.0-35.0); MCHC 32.8 g/dL (31.0-37.0); MCV 99.1 fL (80.0-100.0); Mean Platelet Volume 7.8; Platelet Count 183 k/uL (150-450); RBC 3.53 m/uL (3.80-5.40); RDW 12.5 % (11.5-15.5); WBC 17.8 k/uL (3.8-10.6)
[2023-02-10 13:37] LABS: African American GFR (CKD) >90 (>60 ml/min/1.73 sqM); Anion Gap 10 mmol/L; Blood Urea Nitrogen 12 mg/dL (7-17); Calcium 8.5 mg/dL (8.4-10.2); Carbon Dioxide 22 mmol/L (22-30); Chloride 106 mmol/L (98-107); Glucose 83 mg/dL (74-99); Non-African American GFR(CKD) >90 (>60 ml/min/1.73 sqM); Potassium 3.9 mmol/L (3.5-5.1); Sodium 138 mmol/L (137-145)
[2023-02-10] MEDS: OLANZapine 7.5 MG TAB PO SCH (21:02)
[2023-02-11] MEDS: SODIUM CHLORIDE 0.9% 1,000 ML IV SCH ×2 (01:28→13:37)
[2023-02-11 06:50] LABS: HCT 35.2 % (34.0-46.0); HGB 11.1 gm/dL (11.4-16.0); MCH 31.8 pg (25.0-35.0); MCHC 31.5 g/dL (31.0-37.0); MCV 101.1 fL (80.0-100.0); Mean Platelet Volume 7.3; Platelet Count 228 k/uL (150-450); RBC 3.48 m/uL (3.80-5.40); RDW 12.3 % (11.5-15.5); WBC 19.6 k/uL (3.8-10.6)
[2023-02-11 06:59] LABS: African American GFR (CKD) >90 (>60 ml/min/1.73 sqM); Anion Gap 8 mmol/L; Blood Urea Nitrogen 9 mg/dL (7-17); Calcium 8.3 mg/dL (8.4-10.2); Carbon Dioxide 22 mmol/L (22-30); Chloride 107 mmol/L (98-107); Glucose 100 mg/dL (74-99); Non-African American GFR(CKD) >90 (>60 ml/min/1.73 sqM); Potassium 3.9 mmol/L (3.5-5.1); Sodium 137 mmol/L (137-145)
[2023-02-11] MEDS: GABAPENTIN 100 MG CAP PO SCH ×2 (08:40→21:14)
[2023-02-11] MEDS: VALPROIC ACID ORAL SOLN 250 MG/5 ML CUP PO SCH ×3 (08:41→21:14)
[2023-02-11] MEDS: AZITHROMYCIN 500 MG TAB PO SCH (08:41)
[2023-02-11] MEDS: FAMOTIDINE 20 MG TAB PO SCH (08:42)
[2023-02-11] MEDS: PALIPERIDONE 6 MG TAB.ER.24 PO SCH (08:42)
[2023-02-11] MEDS: BENZTROPINE MESYLATE 1 MG TAB PO SCH (08:42)
[2023-02-11] MEDS: PANTOPRAZOLE 40 MG TABLET PO SCH (08:42)
[2023-02-11] MEDS: LORATADINE 10 MG TAB PO SCH (08:42)
[2023-02-11] MEDS: ENOXAPARIN 40 MG/0.4 ML SYRINGE SQ SCH (08:43)
[2023-02-11] MEDS: cycloSPORINE 0.05% OPHTH 0.4 ML DROPERETTE BOTH EYES SCH ×2 (08:43→21:14)
[2023-02-11] MEDS: OFLOXACIN 0.3% OPHTH DROPS 5 ML BOTTLE LEFT EAR SCH ×2 (08:43→21:15)
[2023-02-11] MEDS: OXYBUTYNIN 10 MG TAB.ER.24 PO SCH (08:45)
--- NOTE | 2023-02-11 11:56 | P.PN ---
Subjective Progress Note Date: 02/11/23 Patient is a 57-year-old female with PMH of schizoaffective disorder, Tinoco's palsy presents ED after being brought in from the [place] clinic. Apparently, patient was seen at the [facility] in [place] on Sunday. Workup at that time revealed pneumonia however patient signed out AGAINST MEDICAL ADVICE. Si nce then, patient has been progressively getting confused and has now noticed left-sided ear drainage. She went to the [place] clinic today where she was urged to go to the hospital due to concerns for sepsis and overwhelming infection. In the ED, she was noted to be tachycardic with heart rate in the 100s and T-max of 101.7. Vital signs were otherwise stable. CBC showed leukocytosis of 14.3 and hemoglobin of 10.7 with neutrophilia. Coagulation panel within normal limits. CMP showed sodium of 136, potassium of 3.2, AST of 284, ALT of 40. TSH within normal limits. Ammonia within normal limits. Troponin less than 0.012. Urinalysis showed large blood, negative for leukocyte esterase or nitrite. UDS positive for benzodiazepine. Serum alcohol negative. EKG showed sinus tachycardia with T wave inversion in V3 and V4. Brain CT was negative. Chest x-ray negative. CTA chest showing consolidation of the left hilar region and mediastinal adenopathy. 02/10 Patient was seen and examined. Appears lethargic today. She has no specific complaints. Lactic acid is 1.6. CBC and BMP pending. She continues to be tachycardic with heart rate in the 110s. T-max 101.7 over the past 24 hours. Chest x-ray shows left-sided infiltrate, stable from admission. 02/11 Patient was seen and examined. Sleeping comfortable. She has no complaints. BP 115/80 with P 120, saturating 96% on RA. Tmax 100.4 over the past 24H. CBC shows WBC count of 19.6 and Hg 11.1 with MCV of 101.1. BMP shows glucose 100 and Ca 8.3. BCx prelim negative at 24H. General: non toxic, no distress, appears at stated age Derm: warm, dry, left ear swollen external canal, unable to view TM Head: atraumatic, normocephalic, symmetric Eyes: EOMI, no lid lag, anicteric sclera Cardiovascular: Tachycardic, no murmur Lungs: CTA bilateral, no rhonchi, no rales , no accessory muscle use Ext: no gross muscle atrophy, no edema, no contractures Neuro: L sided facial droop, no focal neuro deficits Psych: Alert, oriented x 1-2 Sepsis related to community-acquired pneumonia Acute metabolic encephalopathy related to above Otitis external Normocytic anemia Hypokalemia Transaminitis Chronic conditions: Schizoaffective disorder, Tinoco's palsy Based on my assessment of this patient, this patient meets a high complexity level of care. Patient has a history of with severe exacerbation or progression of disease which poses a threat to life or bodily function. Patient has an acute diagnosis of sepsis related to community-acquired pneumonia and otitis external that poses a threat to life or bodily function. She meets sepsis criteria with leukocytosis, tachycardia and positive source of infection. Continue Rocephin 2 g IV daily, azithromycin 500 mg by mouth daily for treatment of pneumonia. Continue ofloxacin 0.3% ear drops for treatment of otitis externa. Decrease normal saline to 75 mL per hour. Telemetry monitoring. Sputum culture, blood culture, and Legionella antigen pending. Pulmonology consulted for further management. Lovenox SQ for DVT prophylaxis. Full code. I have reviewed the following architectural sales consultant notes: I have reviewed the results of the following tests: CBC, BMP, BCx as above. I have ordered the following tests: CBC and BMP ordered. I have discussed the care of this patient with the following independent historian: I have independently interpreted the following test below: I have discussed the management of this patient with the following physician: Objective - Vital Signs Vital signs: Vital Signs Temp 98.5 F 02/11/23 07:30 Pulse 120 H 02/11/23 07:30 Resp 20 02/11/23 07:30 BP 115/80 02/11/23 07:30 Pulse Ox 96 02/11/23 08:45 FiO2 21 02/10/23 20:47 Intake & Output 02/10/23 02/11/23 02/11/23 18:59 06:59 18:59 Intake Total 1560 Balance 1560 Intake: Intake, IV Titration 1560 Amount Sodium Chloride 0.9% 1, 1560 000 ml @ 130 mls/hr IV . [id number] [facility] Rx#:[id number] Other: Voiding Method Bedside Commode # Voids 0 1 - Labs CBC & Chem 7: 02/11/23 06:37 02/11/23 06:37 Labs: Abnormal Lab Results - Last 24 Hours (Table) 02/10/23 02/11/23 02/11/23 Range/Units 12:55 06:37 06:37 WBC 17.8 H 19.6 H (3.8-10.6) k/uL RBC 3.53 L 3.48 L (3.80-5.40) m/uL Hgb 11.1 L (11.4-16.0) gm/dL MCV 101.1 H (80.0-100.0) fL Glucose 100 H (74-99) mg/dL Calcium 8.3 L (8.4-10.2) mg/dL Microbiology - Last 24 Hours (Table) 02/09/23 11:25 Blood Culture - Preliminary Blood 02/09/23 11:40 Blood Culture - Preliminary Blood
--- NOTE | 2023-02-11 12:05 | P.CNPUL ---
History of Present Illness Consult date: 02/11/23 Requesting physician: Dante Renteria Reason for consult: pneumonia, abnormal CXR/CT Chief complaint: Shortness of breath History of present illness: This is a 57-year-old female patient with a history of schizoaffective disorder and Tinoco's palsy. She resides in an adult foster senior living. She follows with the [place] [facility] in [place] and was taken there for flank pain on 02/07/2023. A computed tomography scan of the abdomen and pelvis did not reveal any significant findings however there was noted pneumonia and the patient was recommended hospitalization none but had refused. She was given any medications at that time. She was taken to a clinic on 02/09/2023 with left-sided ear drainage and was found to have an infection. She was also found to be tachycardic and concerns for sepsis and she was brought into the hospital. She is also developing confusion. Computed tomography scan of the brain revealed no acute intracranial process. Chest x-ray reveals a left mid and lower lung c onsolidative opacity. EKG angiogram ruled out pulmonary embolism. There is again consolidation with pneumatoceles or cavitation within the midportion of the left hilar region. This extends from the hilum to the periphery of the lung and measures at greatest dimension 7.6 x 5.5 cm. Pneumonia versus neoplasm within the differential. Enlarged mediastinal adenopathy noted as well. White count 19.6. Hemoglobin 11.1. Platelets 228. Sodium 137. Potassium 3.9. Bicarb 22. BUN 9. Creatinine 0.57. Glucose 100. Urine legionella antigen negative. Urine drug screen positive for benzodiazepines. She is seen today in consultation on the regular medical floor. She is arousable. Poor historian. Not able to get much information. She is currently resting comfortably in bed. She is maintaining good O2 saturations in the 90s on room air. She's been afebrile. Remains tachycardic in the 110 to 120s. Blood pressure stable. Review of Systems ROS unobtainable: due to mental status Past Medical History Past Medical History: Unable to Obtain Additional Past Medical History / Comment(s): chronic back pain, iron deficiency anemia History of Any Multi-Drug Resistant Organisms: None Reported Past Surgical History: Unable to Obtain Past Anesthesia/Blood Transfusion Reactions: Unable to Obtain Past Psychological History: Bipolar, Schizophrenia Past Alcohol Use History: Abuse Past Drug Use History: Cocaine Medications and Allergies Home Medications Medication Instructions Recorded Confirmed Type Acetaminophen Tab [Tylenol] 650 mg PO Q6HR PRN 02/09/23 02/09/23 History Benzoyl Peroxide 2.5% Gel 1 applic TOPICAL DAILY PRN 02/09/23 02/09/23 History Benztropine Mesylate [Cogentin] 1 mg PO DAILY 02/09/23 02/09/23 History Carboxymethylcellulose Sodium 1 drop BOTH EYES QID PRN 02/09/23 02/09/23 History [Refresh Tears] Celecoxib [CeleBREX] 100 mg PO BID 02/09/23 02/09/23 History Cholecalciferol [Vitamin D3 (10 10 mcg PO DAILY 02/09/23 02/09/23 History Mcg = 400 Iu)] Diclofenac Sodium Gel [Voltaren 1 applic TOPICAL BID PRN 02/09/23 02/09/23 History Gel] Docusate [Colace] 100 mg PO BID PRN 02/09/23 02/09/23 History Famotidine [Pepcid] 20 mg PO DAILY 02/09/23 02/09/23 History Gabapentin [Neurontin] 100 mg PO BID 02/09/23 02/09/23 History Hypromellose 0.5% Eye Drops 1 drop BOTH EYES DAILY PRN 02/09/23 02/09/23 History LORazepam [Ativan] 1 mg PO BID PRN 02/09/23 02/09/23 History Loratadine 10 mg PO DAILY 02/09/23 02/09/23 History Multivitamins, Thera [Multivitamin 1 tab PO DAILY 02/09/23 02/09/23 History (formulary)] OLANZapine 15 mg PO HS 02/09/23 02/09/23 History Omeprazole 20 mg PO DAILY 02/09/23 02/09/23 History Oxybutynin Chloride [oxyBUTYnin 10 mg PO DAILY 02/09/23 02/09/23 History chloride ER] Paliperidone [Invega] 6 mg PO DAILY 02/09/23 02/09/23 History Pyrithione Zinc 2% Shampoo 1 applic TOPICAL DAILY PRN 02/09/23 02/09/23 History Refresh Pm Eye Lubrication 1 applic BOTH EYES HS 02/09/23 02/09/23 History Tretinoin/Emollient Base 1 applic TOPICAL HS 02/09/23 02/09/23 History [Tretinoin 0.05% Emollient Crm] Triamcinolone 0.1% Ointment 1 applic TOPICAL BID PRN 02/09/23 02/09/23 History [Kenalog 0.1% Ointment] Valproic Acid [Depakene] 500 mg PO TID@0800,1400,2000 02/09/23 02/09/23 History cycloSPORINE 0.05% OPHTH SOLN 1 applicator BOTH EYES Q12H 02/09/23 02/09/23 History [Restasis] polyethylene glycoL 3350 [Miralax] 17 gm PO BID PRN 02/09/23 02/09/23 History Allergies Allergy/AdvReac Type Severity Reaction Status Date / Time No Known Allergies Allergy Verified 02/09/23 13:18 Physical Exam Vitals: Vital Signs Temp Pulse Pulse Resp BP BP Pulse Ox 02/11/23 08:45 96 02/11/23 07:30 98.5 F 120 H 20 115/80 96 02/11/23 01:24 98.8 F 106 H 17 111/74 93 L 02/10/23 20:47 96 02/10/23 20:00 110 H 18 02/10/23 19:53 98.5 F 114 H 18 104/71 99 02/10/23 18:32 98.8 F 126 H 16 109/72 96 02/10/23 16:50 100 F H 112 H 18 115/71 96 02/10/23 15:49 100 F H 110 H 18 107/68 97 02/10/23 15:04 100.4 F H 131 H 18 107/68 94 L FiO2 02/11/23 08:45 02/11/23 07:30 02/11/23 01:24 02/10/23 20:47 21 02/10/23 20:00 02/10/23 19:53 02/10/23 18:32 02/10/23 16:50 02/10/23 15:49 02/10/23 15:04 Intake and Output 02/10/23 02/11/23 02/11/23 22:59 06:59 14:59 Intake Total 1560 Balance 1560 Intake: Intake, IV Titration 1560 Amount Sodium Chloride 0.9% 1, 1560 000 ml @ 130 mls/hr IV . Q7H42M [facility] Rx#:[id number] Other: Voiding Method Bedside Commode # Voids 1 GENERAL EXAM: Arousable, easily drifts off, 57-year-old female, on room air,, comfortable in no apparent distress. HEAD: Normocephalic. EYES: Normal reaction of pupils, equal size. NOSE: Clear with pink turbinates. THROAT: No erythema or exudates. NECK: No masses, no JVD. CHEST: No chest wall deformity. LUNGS: Equal air entry with scattered rhonchi throughout the left lung. CVS: S1 and S2 normal with no audible murmur, regular rhythm. ABDOMEN: No hepatosplenomegaly, normal bowel sounds, no guarding or rigidity. SPINE: No scoliosis or deformity SKIN: No rashes CENTRAL NERVOUS SYSTEM: No focal deficits, tone is normal in all 4 extremities. EXTREMITIES: There is no peripheral edema. No clubbing, no cyanosis. Peripheral pulses are intact. Results - Laboratory Findings CBC and BMP: 02/11/23 06:37 02/11/23 06:37 PT/INR, D-dimer PT 10.8 sec (9.0-12.0) 02/09/23 11:03 INR 1.0 (<1.2) 02/09/23 11:03 Abnormal lab findings: Abnormal Labs 02/09/23 02/09/23 02/09/23 11:03 11:03 11:03 WBC 14.3 H RBC 3.34 L Hgb 10.7 L Hct 32.4 L MCV Neutrophils # 11.6 H Monocytes # 1.4 H Sodium 136 L Potassium 3.2 L Glucose Plasma Lactic Acid Seven Calcium AST 284 H ALT 40 H Albumin 3.3 L Urine Protein 1+ H Urine Ketones 1+ H Urine Blood Large H Urine Bacteria Rare H Urine Mucus Few H U Benzodiazepines Scrn Detected H 02/09/23 02/10/23 02/11/23 18:29 12:55 06:37 WBC 17.8 H 19.6 H RBC 3.53 L 3.48 L Hgb 11.1 L Hct MCV 101.1 H Neutrophils # Monocytes # Sodium Potassium Glucose Plasma Lactic Acid Seven 2.6 H* Calcium AST ALT Albumin Urine Protein Urine Ketones Urine Blood Urine Bacteria Urine Mucus U Benzodiazepines Scrn 02/11/23 06:37 WBC RBC Hgb Hct MCV Neutrophils # Monocytes # Sodium Potassium Glucose 100 H Plasma Lactic Acid Seven Calcium 8.3 L AST ALT Albumin Urine Protein Urine Ketones Urine Blood Urine Bacteria Urine Mucus U Benzodiazepines Scrn - Diagnostic Findings Chest x-ray: image reviewed CT scan - chest: image reviewed Assessment and Plan Assessment: Altered mental status secondary to suspected community acquired pneumonia versus neoplasm. CT angiogram ruled out pulmonary embolism. There is a noted consolidation with pneumatoceles or cavitation within the midportion of the left hilar region. This extends from the hilum to the periphery of the lung and measures at greatest dimension 7.6 x 5.5 cm. Enlarged mediastinal adenopathy noted as well. Legionella antigen negative. Acute left otitis media Febrile illness secondary to above Leukocytosis secondary to above Schizoaffective disorder History of Tinoco's palsy with left-sided facial droop Plan: The patient was seen and evaluated Poor historian unable to obtain much information Chest x-ray, CAT scan, labs and medications reviewed Sedated on azithromycin and ceftriaxone Stable and on room air Lovenox for DVT prophylaxis Follow-up chest x-ray in a.m. May need bronchoscopy with BAL/biopsy if no improvement We will continue to follow and make further recommendations based on her clinical status I have personally seen and examined the patient, performed the documentation and the assessment and plan as written. Number of minutes spent on the visit: 20.
[2023-02-11] MEDS: OLANZapine 7.5 MG TAB PO SCH (21:14)
[2023-02-11] MEDS: ACETAMINOPHEN TAB 325 MG TAB PO PRN (21:14)
[2023-02-12] MEDS: SODIUM CHLORIDE 0.9% 1,000 ML IV SCH ×2 (01:35→19:40)
[2023-02-12] MEDS: GABAPENTIN 100 MG CAP PO SCH ×2 (08:03→21:59)
[2023-02-12] MEDS: FAMOTIDINE 20 MG TAB PO SCH (08:03)
[2023-02-12] MEDS: PANTOPRAZOLE 40 MG TABLET PO SCH (08:03)
[2023-02-12] MEDS: LORATADINE 10 MG TAB PO SCH (08:03)
[2023-02-12] MEDS: VALPROIC ACID ORAL SOLN 250 MG/5 ML CUP PO SCH ×3 (08:04→15:02)
[2023-02-12] MEDS: BENZTROPINE MESYLATE 1 MG TAB PO SCH (08:04)
[2023-02-12] MEDS: OXYBUTYNIN 10 MG TAB.ER.24 PO SCH (08:04)
[2023-02-12] MEDS: PALIPERIDONE 6 MG TAB.ER.24 PO SCH (08:04)
[2023-02-12] MEDS: OFLOXACIN 0.3% OPHTH DROPS 5 ML BOTTLE LEFT EAR SCH ×2 (08:06→21:59)
[2023-02-12] MEDS: cycloSPORINE 0.05% OPHTH 0.4 ML DROPERETTE BOTH EYES SCH ×2 (08:09→21:58)
[2023-02-12] MEDS: ENOXAPARIN 40 MG/0.4 ML SYRINGE SQ SCH (08:11)
[2023-02-12] MEDS: LEVOFLOXACIN 750 MG TAB PO SCH (14:17)
[2023-02-12 14:29] VITALS: BMI 24.9
--- NOTE | 2023-02-12 15:31 | P.PN ---
Subjective Progress Note Date: 02/12/23 This is a 57-year-old female patient with a history of schizoaffective disorder and Tinoco's palsy. She resides in an adult foster assisted. She follows with the [place] clinic in [place] and was taken there for flank pain on 02/07/2023. A computed tomography scan of the abdomen and pelvis did not reveal any significant findings however there was noted pneumonia and the patient was recommended hospitalization none but had refused. She was given any medications at that time. She was taken to a clinic on 02/09/2023 with left-sided ear drainage and was found to have an infection. She was also found to be tachycardic and concerns for sepsis and she was brought into the hospital. She is also developing confusion. Computed tomography scan of the brain revealed no acute intracranial process. Chest x-ray reveals a left mid and lower lung consolidative opacity. EKG angiogram ruled out pulmonary embolism. There is again consolidation with pneumatoceles or cavitation within the midportion of the left hilar region. This extends from the hilum to the periphery of the lung and measures at greatest dimension 7.6 x 5.5 cm. Pneumonia versus neoplasm within the differential. Enlarged mediastinal adenopathy noted as well. White count 19.6. Hemoglobin 11.1. Platelets 228. Sodium 137. Potassium 3.9. Bicarb 22. BUN 9. Creatinine 0.57. Glucose 100. Urine legionella antigen negative. Urine drug screen positive for benzodiazepines. She is seen today in consultation on the regular medical floor. She is arousable. Poor historian. Not able to get much information. She is currently resting comfortably in bed. She is maintaining good O2 saturations in the 90s on room air. She's been afebrile. Remains tachycardic in the 110 to 120s. Blood pressure stable. On today's evaluation of 02/12/2023, the patient is basically follow-up. The patient on room air oxygen. The patient denies having any significant shortness of breath. Nevertheless, the patient has a scaly is a chronic patient and her history is limited. She lost her IV and she has declined having another IV insertion. I reviewed the chest x-ray there is a consolidation of the left midlung and the left lower lobe consistent with pneumonia. The computed tomography scan of the chest was also done on 02/09/2023 showed consolidation of the left hilar region exiting to the periphery of the lung consistent with pne umonia. There is also evidence of mediastinal lymphadenopathy. There is also some central cavitation. Possibility of malignancy cannot be completely excluded. The patient's echoes at 19.6 with a hemoglobin 11.1. Lactic acid level is as high as 2.6. Bili Legionella urine antigen was negative. Patient is Declining IV Access. Objective - Vital Signs Vital signs: Vital Signs Temp 98.0 F 02/12/23 08:00 Pulse 111 H 02/12/23 08:00 Resp 20 02/12/23 08:00 BP 137/87 02/12/23 08:00 Pulse Ox 94 L 02/12/23 09:40 FiO2 21 02/10/23 20:47 Intake & Output 02/11/23 02/12/23 02/12/23 18:59 06:59 18:59 Intake Total 1080 Balance 1080 Intake: Oral 1080 Other: Voiding Method Bedside Commode # Voids 2 3 # Bowel Movements 1 - Exam GENERAL EXAM: Arousable, easily drifts off, 57-year-old female, on room air,, comfortable in no apparent distress. HEAD: Normocephalic. EYES: Normal reaction of pupils, equal size. NOSE: Clear with pink turbinates. THROAT: No erythema or exudates. NECK: No masses, no JVD. CHEST: No chest wall deformity. LUNGS: Equal air entry with scattered rhonchi throughout the left lung. CVS: S1 and S2 normal with no audible murmur, regular rhythm. ABDOMEN: No hepatosplenomegaly, normal bowel sounds, no guarding or rigidity. SPINE: No scoliosis or deformity SKIN: No rashes CENTRAL NERVOUS SYSTEM: No focal deficits, tone is normal in all 4 extremities. EXTREMITIES: There is no peripheral edema. No clubbing, no cyanosis. Peripheral pulses are intact. - Labs CBC & Chem 7: 02/11/23 06:37 02/11/23 06:37 Labs: Microbiology - Last 24 Hours (Table) 02/09/23 11:25 Blood Culture - Preliminary Blood 02/09/23 11:40 Blood Culture - Preliminary Blood Assessment and Plan Plan: Altered mental status secondary to suspected community acquired pneumonia versus neoplasm. CT angiogram ruled out pulmonary embolism. There is a noted consolidation with pneumatoceles or cavitation within the midportion of the left hilar region. This extends from the hilum to the periphery of the lung and measures at greatest dimension 7.6 x 5.5 cm. Enlarged mediastinal adenopathy noted as well. Legionella antigen negative. This could be an area of pneumonia although the possibility of malignancy cannot be completely excluded as the patient has some central area of cavitation in addition to some mediastinal lymphadenopathy. Acute left otitis media Febrile illness secondary to above Leukocytosis secondary to above Schizoaffective disorder History of Tinoco's palsy with left-sided facial droop Plan: I reviewed the CAT scan of the chest Unable to establish IV access. The patient will be placed on Levaquin 750 mg by mouth daily Stable and on room air Lovenox for DVT prophylaxis Follow-up chest x-ray in a.m. May need bronchoscopy with BAL/biopsy if no improvement We will continue to follow and make further recommendations based on her clinical status
[2023-02-12] MEDS: DIVALPROEX 500 MG TABLET.DR PO SCH ×3 (15:32→21:58)
--- NOTE | 2023-02-12 15:58 | P.PN ---
Subjective Progress Note Date: 02/12/23 Patient is a 57-year-old female with PMH of schizoaffective disorder, Tinoco's palsy presents ED after being brought in from the [place] clinic. Apparently, patient was seen at the [facility] in [place] on Sunday. Workup at that time revealed pneumonia however patient signed out AGAINST MEDICAL ADVICE. Si nce then, patient has been progressively getting confused and has now noticed left-sided ear drainage. She went to the [place] clinic today where she was urged to go to the hospital due to concerns for sepsis and overwhelming infection. In the ED, she was noted to be tachycardic with heart rate in the 100s and T-max of 101.7. Vital signs were otherwise stable. CBC showed leukocytosis of 14.3 and hemoglobin of 10.7 with neutrophilia. Coagulation panel within normal limits. CMP showed sodium of 136, potassium of 3.2, AST of 284, ALT of 40. TSH within normal limits. Ammonia within normal limits. Troponin less than 0.012. Urinalysis showed large blood, negative for leukocyte esterase or nitrite. UDS positive for benzodiazepine. Serum alcohol negative. EKG showed sinus tachycardia with T wave inversion in V3 and V4. Brain CT was negative. Chest x-ray negative. CTA chest showing consolidation of the left hilar region and mediastinal adenopathy. 02/10 Patient was seen and examined. Appears lethargic today. She has no specific complaints. Lactic acid is 1.6. CBC and BMP pending. She continues to be tachycardic with heart rate in the 110s. T-max 101.7 over the past 24 hours. Chest x-ray shows left-sided infiltrate, stable from admission. 02/11 Patient was seen and examined. Sleeping comfortable. She has no complaints. BP 115/80 with P 120, saturating 96% on RA. Tmax 100.4 over the past 24H. CBC shows WBC count of 19.6 and Hg 11.1 with MCV of 101.1. BMP shows glucose 100 and Ca 8.3. BCx prelim negative at 24H. 02/12 Patient was seen and examined. She reports drainage from her left ear. Lost IV access and refusing. BP 137/87 with P 111, saturating 94% on RA. Tmax 99.8 over the past 24H. No new labwork done this morning. BCx prelim negative at 48H. Legionella negative. General: non toxic, no distress, appears at stated age Derm: warm, dry, left ear swollen external canal, unable to view TM Head: atraumatic, normocephalic, symmetric Eyes: EOMI, no lid lag, anicteric sclera Cardiovascular: Tachycardic, no murmur Lungs: CTA bilateral, no rhonchi, no rales , no accessory muscle use Ext: no gross muscle atrophy, no edema, no contractures Neuro: L sided facial droop, no focal neuro deficits Psych: Alert, oriented x 1-2 Sepsis related to community-acquired pneumonia Acute metabolic encephalopathy related to above Otitis external Normocytic anemia Hypokalemia Transaminitis Chronic conditions: Schizoaffective disorder, Tinoco's palsy Based on my assessment of this patient, this patient meets a moderate complexity level of care. Patient has a history of with severe exacerbation or progression of disease which poses a threat to life or bodily function. Patient has an acute diagnosis of sepsis related to community-acquired pneumonia and otitis external that poses a threat to life or bodily function. She meets sepsis criteria with leukocytosis, tachycardia and positive source of infection. Started on Levaquin 750 mg PO QD since losing IV access. Continue ofloxacin 0.3% ear drops for treatment of otitis externa. Continue normal saline to 75 mL per hour. Telemetry monitoring. Legionella negative. Blood Cx negative at 48H. Sputum culture, blood culture pending. Pulmonology on board, may need bronchoscopy. Lovenox SQ for DVT prophylaxis. Full code. I have reviewed the following client development consultant notes: I have reviewed the results of the following tests: Legionella, BCx as above. I have ordered the following tests: CBC and BMP ordered. Agree with repeat CXR. I have discussed the care of this patient with the following independent historian: I have independently interpreted the following test below: I have discussed the management of this patient with the following physician: Objective - Vital Signs Vital signs: Vital Signs Temp 98.0 F 02/12/23 08:00 Pulse 111 H 02/12/23 08:00 Resp 20 02/12/23 08:00 BP 137/87 02/12/23 08:00 Pulse Ox 94 L 02/12/23 09:40 FiO2 21 02/10/23 20:47 Intake & Output 02/11/23 02/12/23 02/12/23 18:59 06:59 18:59 Intake Total 1080 Balance 1080 Weight 70 kg Intake: Oral 1080 Other: Voiding Method Bedside Commode # Voids 2 3 # Bowel Movements 1 - Labs CBC & Chem 7: 02/11/23 06:37 02/11/23 06:37 Labs: Microbiology - Last 24 Hours (Table) 02/09/23 11:25 Blood Culture - Preliminary Blood 02/09/23 11:40 Blood Culture - Preliminary Blood
[2023-02-12] MEDS: OLANZapine 7.5 MG TAB PO SCH (21:59)
[2023-02-13] MEDS: SODIUM CHLORIDE 0.9% 1,000 ML IV SCH (00:13)
[2023-02-13 07:56] VITALS: BP 111/73; RESP 18; TEMP 98.6
[2023-02-13] MEDS: ACETAMINOPHEN TAB 325 MG TAB PO PRN (09:57)
[2023-02-13] MEDS: LEVOFLOXACIN 750 MG TAB PO SCH (09:59)
[2023-02-13] MEDS: GABAPENTIN 100 MG CAP PO SCH (09:59)
[2023-02-13] MEDS: BENZTROPINE MESYLATE 1 MG TAB PO SCH (10:00)
[2023-02-13] MEDS: LORATADINE 10 MG TAB PO SCH (10:00)
[2023-02-13] MEDS: OXYBUTYNIN 10 MG TAB.ER.24 PO SCH (10:01)
[2023-02-13] MEDS: PALIPERIDONE 6 MG TAB.ER.24 PO SCH (10:01)
[2023-02-13] MEDS: PANTOPRAZOLE 40 MG TABLET PO SCH (10:02)
[2023-02-13] MEDS: FAMOTIDINE 20 MG TAB PO SCH (10:02)
[2023-02-13] MEDS: cycloSPORINE 0.05% OPHTH 0.4 ML DROPERETTE BOTH EYES SCH (10:03)
[2023-02-13] MEDS: DIVALPROEX 500 MG TABLET.DR PO SCH (10:03)
[2023-02-13] MEDS: ENOXAPARIN 40 MG/0.4 ML SYRINGE SQ SCH (10:22)
--- NOTE | 2023-02-13 11:18 | P.DS ---
Providers Date of admission: 02/09/23 14:40 Expected date of discharge: 02/13/23 Attending physician: Dante Renteria MD Consults: 02/10/23 12:41 Consult Physician Routine Consulting Provider: Sanchez Pineda Consult Reason/Comments: PNA Do you want consulting provider notified?: Yes Primary care physician: [facility] Course: Sepsis related to community-acquired pneumonia Acute metabolic encephalopathy related to above Otitis external Normocytic anemia Hypokalemia Transaminitis Chronic conditions: Schizoaffective disorder, Tinoco's palsy Hospital Course: Patient is a 57-year-old female with PMH of schizoaffective disorder, Tinoco's palsy presents ED after being brought in from the [facility]. In the ED, she was noted to be tachycardic with heart rate in the 100s and T-max of 101.7. Vital signs were otherwise stable. CBC showed leukocytosis of 14.3 and hemoglobin of 10.7 with neutrophilia. Coagulation panel within normal limits. CMP showed sodium of 136, potassium of 3.2, AST of 284, ALT of 40. TSH within normal limits. Ammonia within normal limits. Troponin less than 0.012. Urinalysis showed large blood, negative for leukocyte esterase or nitrite. UDS positive for benzodiazepine. Serum alcohol negative. EKG showed sinus tachycardia with T wave inversion in V3 and V4. Brain CT was negative. Chest x-ray negative. CTA chest showing consolidation of the left hilar region and mediastinal adenopathy. 02/10 Patient was seen and examined. Appears lethargic today. She has no specific complaints. Lactic acid is 1.6. CBC and BMP pending. She continues to be tachycardic with heart rate in the 110s. T-max 101.7 over the past 24 hours. Chest x-ray shows left-sided infiltrate, stable from admission. 02/11 Patient was seen and examined. Sleeping comfortable. She has no complaints. BP 115/80 with P 120, saturating 96% on RA. Tmax 100.4 over the past 24H. CBC shows WBC count of 19.6 and Hg 11.1 with MCV of 101.1. BMP shows glucose 100 and Ca 8.3. BCx prelim negative at 24H. 02/12 Patient was seen and examined. She reports drainage from her left ear. Lost IV access and refusing. BP 137/87 with P 111, saturating 94% on RA. Tmax 99.8 over the past 24H. No new labwork done this morning. BCx prelim negative at 48H. Legionella negative. 02/13: Pt doing well today on room air. Lungs sound clear. Pt appears cleared for DC, will required f/u with PCP. Prescribed an additional 1 dose of levofloxacin to complete a 5 day course for pneumonia I spent 37 minutes coordinating this discharge on 02/13 Gen: awake, alert HEENT: normocephalic, atraumatic, good hearing acuity, moist mucous membranes Resp: good air exchange, breathing comfortably with no accessory muscle use, clear to auscultation bilaterally CVS: good distal perfusion x 4, GI: soft, NTTP, ND : no SPT, no CVAT, henry catheter not present MSK: no pitting edema, no clubbing Neuro: non-focal, moving all extremities Psych: cooperative, euthymic mood Patient Condition at Discharge: Good Plan - Discharge Summary Discharge Rx Participant: Yes New Discharge Prescriptions: New Levofloxacin [Levaquin] 750 mg PO DAILY #1 tab Ofloxacin 0.3% Ophth Soln [Ocuflox Ophth Soln] 10 drops LEFT EAR BID #21 ml Continue Famotidine [Pepcid] 20 mg PO DAILY Tretinoin/Emollient Base [Tretinoin 0.05% Emollient Crm] 1 applic TOPICAL HS Gabapentin [Neurontin] 100 mg PO BID Acetaminophen Tab [Tylenol] 650 mg PO Q6HR PRN PRN Reason: Pain Or Fever > 100.5 Benztropine Mesylate [Cogentin] 1 mg PO DAILY Benzoyl Peroxide 2.5% Gel 1 applic TOPICAL DAILY PRN PRN Reason: skin issues Pyrithione Zinc 2% Shampoo 1 applic TOPICAL DAILY PRN PRN Reason: dandruff/dry scalp cycloSPORINE 0.05% OPHTH SOLN [Restasis] 1 applicator BOTH EYES Q12H polyethylene glycoL 3350 [Miralax] 17 gm PO BID PRN PRN Reason: Constipation Docusate [Colace] 100 mg PO BID PRN PRN Reason: Constipation Cholecalciferol [Vitamin D3 (10 Mcg = 400 Iu)] 10 mcg PO DAILY Omeprazole 20 mg PO DAILY Triamcinolone 0.1% Ointment [Kenalog 0.1% Ointment] 1 applic TOPICAL BID PRN PRN Reason: psoriasis Diclofenac Sodium Gel [Voltaren Gel] 1 applic TOPICAL BID PRN PRN Reason: Pain Oxybutynin Chloride [oxyBUTYnin chloride ER] 10 mg PO DAILY Paliperidone [Invega] 6 mg PO DAILY OLANZapine 15 mg PO HS LORazepam [Ativan] 1 mg PO BID PRN PRN Reason: Anxiety Refresh Pm Eye Lubrication 1 applic BOTH EYES HS Hypromellose 0.5% Eye Drops 1 drop BOTH EYES DAILY PRN PRN Reason: eye issues Carboxymethylcellulose Sodium [Refresh Tears] 1 drop BOTH EYES QID PRN PRN Reason: dry eyes Loratadine 10 mg PO DAILY Valproic Acid [Depakene] 500 mg PO TID@0800,1400,2000 Multivitamins, Thera [Multivitamin (formulary)] 1 tab PO DAILY Discontinued Celecoxib [CeleBREX] 100 mg PO BID Discharge Medication List Acetaminophen Tab [Tylenol] 650 mg PO Q6HR PRN 02/09/23 [History] Benzoyl Peroxide 2.5% Gel 1 applic TOPICAL DAILY PRN 02/09/23 [History] Benztropine Mesylate [Cogentin] 1 mg PO DAILY 02/09/23 [History] Carboxymethylcellulose Sodium [Refresh Tears] 1 drop BOTH EYES QID PRN 02/09/23 [History] Cholecalciferol [Vitamin D3 (10 Mcg = 400 Iu)] 10 mcg PO DAILY 02/09/23 [History] Diclofenac Sodium Gel [Voltaren Gel] 1 applic TOPICAL BID PRN 02/09/23 [History] Docusate [Colace] 100 mg PO BID PRN 02/09/23 [History] Famotidine [Pepcid] 20 mg PO DAILY 02/09/23 [History] Gabapentin [Neurontin] 100 mg PO BID 02/09/23 [History] Hypromellose 0.5% Eye Drops 1 drop BOTH EYES DAILY PRN 02/09/23 [History] LORazepam [Ativan] 1 mg PO BID PRN 02/09/23 [History] Loratadine 10 mg PO DAILY 02/09/23 [History] Multivitamins, Thera [Multivitamin (formulary)] 1 tab PO DAILY 02/09/23 [History] OLANZapine 15 mg PO HS 02/09/23 [History] Omeprazole 20 mg PO DAILY 02/09/23 [History] Oxybutynin Chloride [oxyBUTYnin chloride ER] 10 mg PO DAILY 02/09/23 [History] Paliperidone [Invega] 6 mg PO DAILY 02/09/23 [History] Pyrithione Zinc 2% Shampoo 1 applic TOPICAL DAILY PRN 02/09/23 [History] Refresh Pm Eye Lubrication 1 applic BOTH EYES HS 02/09/23 [History] Tretinoin/Emollient Base [Tretinoin 0.05% Emollient Crm] 1 applic TOPICAL HS 02/09/23 [History] Triamcinolone 0.1% Ointment [Kenalog 0.1% Ointment] 1 applic TOPICAL BID PRN 02/09/23 [History] Valproic Acid [Depakene] 500 mg PO TID@0800,1400,2000 02/09/23 [History] cycloSPORINE 0.05% OPHTH SOLN [Restasis] 1 applicator BOTH EYES Q12H 02/09/23 [History] polyethylene glycoL 3350 [Miralax] 17 gm PO BID PRN 02/09/23 [History] Levofloxacin [Levaquin] 750 mg PO DAILY #1 tab 02/13/23 [Rx] Ofloxacin 0.3% Ophth Soln [Ocuflox Ophth Soln] 10 drops LEFT EAR BID #21 ml 02/13/23 [Rx] Follow up Appointment(s)/Referral(s): [facility],Clinic [Primary Care Provider] - As Needed Activity/Diet/Wound Care/Special Instructions: Patient will return to [facility] on discharge. [facility] phone #[phone]. Please call Mariusz or Bushra for transport to [facility]: #[phone]. Discharge Disposition: HOME SELF-CARE
--- NOTE | 2023-02-13 12:24 | XR ---
EXAMINATION TYPE: XR chest 1V DATE OF EXAM: 02/13/2023 12:18 PM COMPARISON: Chest radiographs from 02/10/2023 TECHNIQUE: XR chest 1V Frontal view of the chest. CLINICAL INDICATION:Female, 57 years old with history of Pneumonia; FINDINGS: Lungs/Pleura: Similar left lower lung airspace opacities compared to immediate prior on 02/10/2023. The re is no evidence of pleural effusion, focal consolidation, or pneumothorax. Pulmonary vascularity: Unremarkable. Heart/mediastinum: Cardiomediastinal silhouette is unremarkable. Musculoskeletal: No acute osseous pathology. IMPRESSION: Left lower lung consolidation with suspected underlying effusion.
[2023-02-13] MEDS: OFLOXACIN 0.3% OPHTH DROPS 5 ML BOTTLE LEFT EAR SCH (12:51)
[2023-02-13 13:59] VITALS: PULSE 100
--- NOTE | 2023-02-13 14:15 | P.PN ---
Subjective Progress Note Date: 02/13/23 This is a 57-year-old female patient with a history of schizoaffective disorder and Tinoco's palsy. She resides in an adult foster retirement. She follows with the [place] [facility] in [place] and was taken there for flank pain on 02/07/2023. A computed tomography scan of the abdomen and pelvis did not reveal any significant findings however there was noted pneumonia and the patient was recommended hospitalization none but had refused. She was given any medications at that time. She was taken to a clinic on 02/09/2023 with left-sided ear drainage and was found to have an infection. She was also found to be tachycardic and concerns for sepsis and she was brought into the hospital. She is also developing confusion. Computed tomography scan of the brain revealed no acute intracranial process. Chest x-ray reveals a left mid and lower lung consolidative opacity. EKG angiogram ruled out pulmonary embolism. There is again consolidation with pneumatoceles or cavitation within the midportion of the left hilar region. This extends from the hilum to the periphery of the lung and measures at greatest dimension 7.6 x 5.5 cm. Pneumonia versus neoplasm within the differential. Enlarged mediastinal adenopathy noted as well. White count 19.6. Hemoglobin 11.1. Platelets 228. Sodium 137. Potassium 3.9. Bicarb 22. BUN 9. Creatinine 0.57. Glucose 100. Urine legionella antigen negative. Urine drug screen positive for benzodiazepines. She is seen today in consultation on the regular medical floor. She is arousable. Poor historian. Not able to get much information. She is currently resting comfortably in bed. She is maintaining good O2 saturations in the 90s on room air. She's been afebrile. Remains tachycardic in the 110 to 120s. Blood pressure stable. On today's evaluation of 02/12/2023, the patient is basically follow-up. The patient on room air oxygen. The patient denies having any significant shortness of breath. Nevertheless, the patient has a scaly is a chronic patient and her history is limited. She lost her IV and she has declined having another IV insertion. I reviewed the chest x-ray there is a consolidation of the left midlung and the left lower lobe consistent with pneumonia. The computed tomography scan of the chest was also done on 02/09/2023 showed consolidation of the left hilar region exiting to the periphery of the lung consistent with pne umonia. There is also evidence of mediastinal lymphadenopathy. There is also some central cavitation. Possibility of malignancy cannot be completely excluded. The patient's echoes at 19.6 with a hemoglobin 11.1. Lactic acid level is as high as 2.6. Bili Legionella urine antigen was negative. Patient is Declining IV Access. On today's evaluation of 02/13/2023, the patient is being seen for a follow-up. The patient remains on room air oxygen. Repeat chest x-ray was done and showed a similar left lower lobe opacity consistent with underlying pneumonia. The patient is currently on oral Levaquin. No clear indication of developmental pleural effusion. The white cell count from 02/11/2023 has been 19.6. No review blood cultures since. The repeat blood cultures been negative. As such, the patient is being considered for discharge to oral antibiotics. The patient declined IV access and she has not been able to receive IV antibiotics. No aspiration. She remains on room air oxygen. Objective - Vital Signs Vital signs: Vital Signs Temp 98.6 F 02/13/23 07:54 Pulse 106 H 02/13/23 07:54 Resp 18 02/13/23 09:38 BP 111/73 02/13/23 07:54 Pulse Ox 92 L 02/13/23 07:54 FiO2 21 02/10/23 20:47 Intake & Output 02/12/23 02/13/23 02/13/23 18:59 06:59 18:59 Weight 70 kg Other: Voiding Method Bedside Commode # Voids 2 9 1 # Bowel Movements 1 - Exam GENERAL EXAM: Arousable, easily drifts off, 57-year-old female, on room air,, comfortable in no apparent distress. HEAD: Normocephalic. EYES: Normal reaction of pupils, equal size. NOSE: Clear with pink turbinates. THROAT: No erythema or exudates. NECK: No masses, no JVD. CHEST: No chest wall deformity. LUNGS: Equal air entry with scattered rhonchi throughout the left lung. CVS: S1 and S2 normal with no audible murmur, regular rhythm. ABDOMEN: No hepatosplenomegaly, normal bowel sounds, no guarding or rigidity. SPINE: No scoliosis or deformity SKIN: No rashes CENTRAL NERVOUS SYSTEM: No focal deficits, tone is normal in all 4 extremities. EXTREMITIES: There is no peripheral edema. No clubbing, no cyanosis. Peripheral pulses are intact. - Labs CBC & Chem 7: 02/11/23 06:37 02/11/23 06:37 Labs: Microbiology - Last 24 Hours (Table) 02/09/23 11:25 Blood Culture - Preliminary Blood 02/09/23 11:40 Blood Culture - Preliminary Blood Assessment and Plan Plan: Altered mental status secondary to suspected community acquired pneumonia versus neoplasm. CT angiogram ruled out pulmonary embolism. There is a noted consolidation with pneumatoceles or cavitation within the midportion of the left hilar region. This extends from the hilum to the periphery of the lung and measures at greatest dimension 7.6 x 5.5 cm. Enlarged mediastinal adenopathy noted as well. Legionella antigen negative. This could be an area of pneumonia although the possibility of malignancy cannot be completely excluded as the patient has some central area of cavitation in addition to some mediastinal lymphadenopathy. Acute left otitis media Febrile illness secondary to above Leukocytosis secondary to above Schizoaffective disorder History of Tinoco's palsy with left-sided facial droop Plan: I reviewed the CAT scan of the chest Repeat chest x-ray shows a stable left lower lobe consolidation, doubt any effusion Unable to establish IV access. The patient will be placed on Levaquin 750 mg by mouth daily Stable and on room air Lovenox for DVT prophylaxis Clinically stable. Repeat white count May be able to get discharged home on oral antibiotics as long as the patient is close follow-up. As mentioned earlier, the left lung consolidations quite extensive and has some limited cavitation and there is also evidence of mediastinal lymphadenopathy. Possibility of malignancy cannot be completely ruled out. The patient needs a short-term follow-up x-ray within the next 2-3 weeks and possibly another CAT scan of the chest in 3 months time. This will be discussed with the medical team. Will be discharged as long as the patient has improvement in the white cell count and she has adequate follow-up and she should be able to reliably take her oral antibiotics.
== END 2023-02-13 16:37 | disposition home or self-care (01) | DRG 871 ==
LOC: EC 10:32 → 4SSUR 14:40 → 5NMEDONC 02-10 07:31 → 4SSUR 02-10 14:05
PROVIDERS: ADMIT Student in an Organized Health Care Education/Training Program; ATTEND Student in an Organized Health Care Education/Training Program
DX: A41.9 Sepsis, unspecified organism (principal); G93.41 Metabolic encephalopathy; J18.9 Pneumonia, unspecified organism; H60.92 Unspecified otitis externa, left ear; D64.9 Anemia, unspecified; H66.92 Otitis media, unspecified, left ear; F31.9 Bipolar disorder, unspecified; F25.9 Schizoaffective disorder, unspecified; E87.6 Hypokalemia; R74.01 Elevation of levels of liver transaminase levels; Z79.899 Other long term (current) drug therapy; Z79.1 Long term (current) use of non-steroidal anti-inflammatories (NSAID); G89.29 Other chronic pain; M54.9 Dorsalgia, unspecified; D50.9 Iron deficiency anemia, unspecified; F10.11 Alcohol abuse, in remission; F14.11 Cocaine abuse, in remission; R59.0 Localized enlarged lymph nodes; J98.4 Other disorders of lung
CPT/HCPCS: 36415; 51701; 70450; 71045; 71275; 80048; 80053; 80306; 80320; 81001; 82140; 83605; 84443; 84484; 85025; 85027; 85610; 85730; 87040; 87449; 93005; 94640; 94760; 96361; 96365; 96366; 96367; 96372; 96375; 99285